=== PATIENT | male | born 1990 ===

== ENCOUNTER 2017-07-20 10:23 | Day surgery (SDC) | payer OTHER ==
[~2017-07-20 10:23] MED LIST: Buffered Lidocaine 0.9% SYRIN* 5 ML/SYR SYRINGE INTRADERM ONE; Sodium Citrate/Citric Acid* 15 ML UDC PO ONE
[2017-07-20] MEDS ORDERED: ceFAZolin 2 GM in 100 MLS NS (*) BAG IVPB ONE (11:55)
[2017-07-20] MEDS ORDERED: Sodium Citrate/Citric Acid* 15 ML UDC ONE (11:55)
[2017-07-20] MEDS ORDERED: Lidocaine 2% PF * 5 ML VIAL ONE (13:16)
[2017-07-20] MEDS ORDERED: Propofol* 10 MG/ML 20 ML BTL IV PUSH ONE ×2 (13:16→14:45)
[2017-07-20] MEDS ORDERED: Bupivacaine 0.25% SDV* 30 ML ONE (13:28)
[2017-07-20] MEDS ORDERED: Midazolam* 1 MG/ML 2 ML VIAL (2 MG) ONE ×2 (13:36→14:22)
[2017-07-20] MEDS ORDERED: fentaNYL* 50 MCG/ML 2 ML VIAL (100 MCG VIAL) ONE ×4 (13:36→18:29)
[2017-07-20] MEDS ORDERED: KETAMINE HCL* 50 MG/ML 10 ML VIAL ONE (14:59)
[2017-07-20] MEDS ORDERED: Dexamethasone IV* 4 MG/ML 1 ML (4 MG) ONE (15:14)
[2017-07-20] MEDS ORDERED: Ketorolac INJ* 30 MG/ML 1 ML VIAL ONE (16:47)
[2017-07-20] MEDS ORDERED: Naloxone* 0.4 MG/ML 1 ML VIAL IV PRN (17:47)
[2017-07-20] MEDS ORDERED: Ondansetron INJ* 2 MG/ML VIAL IV PRN (17:47)
[2017-07-20] MEDS ORDERED: HYDROcodone/ACETAMIN 5-325 MG* 1 TAB ONE (17:49)
[2017-07-20] MEDS: fentaNYL* 50 MCG/ML 2 ML VIAL (100 MCG VIAL) IV PRN ×3 (17:53→18:31)
[2017-07-20 18:51] VITALS: BP 152/93
--- NOTE | 2017-07-21 13:19 | RAD ---
INDICATION: ORIF right wrist COMPARISON: Right wrist May 23, 2017 FINDINGS: 65 seconds of fluoroscopy were provided for the orthopedic department. Fluoroscopic spot imaging of the right wrist were obtained for operative control and show placement of cortical plate and screws across the distal radial fracture . CPT II Codes: 6045F (fluoro time doc)
--- NOTE | 2017-07-22 02:59 | OP ---
\DATE OF OPERATION: 07/20/17 - [facility] DATE OF : 88 SURGEON: Kev Riggins MD ITEM REPAIR MANAGER: RIVERA Mike. An digital sales assistant was needed for the entirety of the procedure to aid in position of the arm and retraction. ANESTHESIOLOGIST: Dr. Hernandez. ANESTHESIA: General. 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 OPERATIVE PROCEDURE: Repair of right distal radius nonunion with autogenous contralateral distal radius bone graft and allograft. IMPLANTS: Synthes variable ankle distal radius plate and screws. INDICATIONS: Rj is an inmate. He had a fracture that has healed, very malunited. I talked to him about his options. We had decided to proceed with nonunion repair. He understood the risk of nonunion and persistent pain despite doing surgery or stiffness. He wants to proceed. ESTIMATED BLOOD LOSS: 5 mL. COMPLICATIONS: None. FINDINGS: As expected. DESCRIPTION OF PROCEDURE: Rj was seen in the preoperative holding area. The correct side, site, and procedure were identified. We came back to the operating room. The arm was prepped and draped in the usual fashion. A time- out was performed. I exsanguinated the arm with Esmarch and the tourniquet was inflated to 250 mmHg. I made a longitudinal incision over the distal FCR tendon. Dissection was carried down. The sheath of the FCR was released. The subsheath was released. This took us down to the pronator quadratus, which was released off the radial margin of the radius and T'd back transversely preserving the distal volar capsular ligaments. The brachioradialis was released. The dorsal periosteum was released with an elevator. I marked out my osteotomy and my osteotomy using the K-wire. The plate was applied to the distal fragment and pinned in place and then one drill hole for one of the 2.4 screws was placed. I then removed my plate. The osteotomy was made with a sagittal saw taking great care to preserve the dorsal structures. The remainder of the dorsal periosteum was released. The [employer] medical front desk coordinator was used to open up the osteotomy. I replaced my plate and this was secured distally. The plate was then brought down to bone with some lobster claw clamps. Fluoroscopic imaging was checked. One screw in the distal aspect of the oblong hole was placed. I then used a push-pull screw with a 2.7 mm screw proximally as opposed and [employer] medical front desk coordinator to gain a few more millimeters of length and the oblong screw was retightened. The remainder of the proximal screws were secured. I then went to the contralateral side. An Esmarch tourniquet was applied. I made a 2 cm incision on the dorsal aspect of the distal radius just proximal to Karen's tubercle. I raised subperiosteal flaps and a cortical window was made. With the osteotomes, I then took distal radius bone graft from there. This was mixed together with some cancellous autograft chips. The bone graft mixture was packed into the osteotome site. The bone graft site was then irrigated out with saline. The skin was closed with luis eduardo. The area was infiltrated with 0.25% Marcaine. Tourniquet was let off and the wound was dressed with Xeroform , 4x4s, sterile Webril, and an Marco bandage. I then checked final fluoroscopic imaging. These were looking good. I think I got it back to about 5 degrees of dorsal tilt. I tried really hard, but I just could not get it back to full 10 degrees of volar tilt and so I decided to accept just a slight amount of dorsal tilt as everything else was corrected nicely. The wound was irrigated out. The pronator was repaired with 3-0 Vicryl suture. The skin was closed with luis eduardo. The operative site was infiltrated with 0.25% plain Marcaine. The wound was dressed with Xeroform, 4x4s , sterile Webril and a wrist splint was applied with dorsal and volar plaster slabs. The tourniquet was deflated. The hand pinked up immediately. Total tourniquet time was about 140 minutes. The patient was woken up and taken to the recovery room in stable condition. [id number]/[facility] #: [id number] [facility]
== END 2017-07-20 19:15 ==
LOC: OREAST 10:23
PROVIDERS: ATTEND Orthopaedic Surgery Hand Surgery
DX: S52.591P Other fractures of lower end of right radius, subsequent encounter for closed fracture with malunion (principal); F17.200 Nicotine dependence, unspecified, uncomplicated; K21.9 Gastro-esophageal reflux disease without esophagitis; V09.9XXD Pedestrian injured in unspecified transport accident, subsequent encounter; Y92.9 Unspecified place or not applicable
CPT/HCPCS: 76000; A9270-GY; C1713; C1776; J1100; J1885; J2250; J2704; J3010